=== PATIENT | female | born 1995 | race Caucasian/White ===

== ENCOUNTER → 2017-04-14 | Outpatient (CLI) | payer BC | LOC: LAB 18:32 | PROVIDERS: ATTEND Pediatrics | DX: J02.9 Acute pharyngitis, unspecified (principal) | CPT/HCPCS: 87070 ==

== ENCOUNTER 2019-06-15 22:58 | Outpatient (CLI) | payer BC, MEDICAID ==
[2019-06-15 23:21] LABS: APPEARANCE,URINE CLEAR; BILIRUBIN,URINE NEGATIVE (NEGATIVE); COLOR,URINE STRAW; GLUCOSE, URINE NEGATIVE (NEGATIVE); KETONES,URINE NEGATIVE (NEGATIVE); LEUKOCYTE ESTERASE,URINE NEGATIVE (NEGATIVE); NITRITE,URINE NEGATIVE (NEGATIVE); PROTEIN,URINE NEGATIVE (NEGATIVE); URINE SPECIFIC GRAVITY 1.002; UROBILINOGEN,URINE NEGATIVE mg/dL (<2.0)
[2019-06-15 23:42] LABS: URINE AMPHETAMINES SCREEN NEGATIVE; URINE BARBITURATES SCREEN NEGATIVE; URINE BENZODIAZEPINES SCREEN NEGATIVE; URINE COCAINE SCREEN NEGATIVE; URINE MARIJUANA (THC) SCREEN NEGATIVE; URINE METHADONE SCREEN NEGATIVE; URINE PHENCYCLIDINE SCREEN NEGATIVE
--- NOTE | 2019-06-15 23:45 | Non Stress Test Report ---
Non Stress Test Datetime Report Generated by CPN: 06/15/2019 23:45 DEMOGRAPHIC EGA NST: 39.4 INDICATION Indication for Study (NST) Other: gestational age greater than 32 weeks VITAL SIGNS Temperature - NST: 98.5 Pulse - NST: 78 RESP - NST: 16 NBPSYS NST: 108 NBPDIA NST: 63 MONITORING Monitor Explained: Monitor Explained; Test Explained; Patient Verbalized Understanding Time on Monitor: 06/15/2019 23:14 Time off Monitor: 06/15/2019 23:37 NST Duration: 23 NST INTERVENTIONS NST Interventions: PO Hydration Physician Notified NST: Dr. Younger BABY A: [id number] BABY A Movement : Present Contraction Frequency : x2 FHR Baseline : 135 Accelerations : 15X15 Decelerations : None Variability : Moderate 6-25bpm NST Review: Meets Criteria for Reactive NST NST Review and Verified By : NATACHA Tam NST Results: Reactive NST REPORT Report Trigger: Send Report
== END 2019-06-15 23:44 | disposition home or self-care (01) ==
LOC: LC 22:58
PROVIDERS: ATTEND Obstetrics & Gynecology
PROC: 4A1HXCZ Monitoring of Products of Conception, Cardiac Rate, External Approach (ICD-10-PCS; principal; 2019-06-15)
DX: Z34.93 Encounter for supervision of normal pregnancy, unspecified, third trimester (principal); Z3A.39 39 weeks gestation of pregnancy
CPT/HCPCS: 59025; 80307; 81005

== ENCOUNTER 2019-06-16 03:50 | Inpatient (IN) | payer BC, MEDICAID ==
[2019-06-16] MEDS ORDERED: RINGERS SOLUTION,LACTATED 1,000 ML IV ONE (04:26)
[2019-06-16] MEDS ORDERED: RINGERS SOLUTION,LACTATED 1,000 ML IV PRN (04:26)
--- NOTE | 2019-06-16 05:08 | Admission Physical ---
Datetime Report Generated by CPN: 06/16/2019 05:07 CURRENT ADMISSION Chief Complaint: Suspected Ruptured Membranes Indication for Induction: Not Applicable Admit Impression : Term, Intrauterine ; No Active Labor; Ruptured Membranes Admit Plan: Admit to Unit; Initiate Labor Augmentation Protocol ALLERGIES Medication Allergies: Yes Medication Allergies: Penicillins (06/16/2019) Latex: No Latex Allergies Food Allergies: none Environmental Allergies: none OBSTETRICAL HISTORY EDC: 06/18/2019 00:00 : 1 Para: 0 Gestational Diabetes: No Rh Sensitization: No Incompetent Cervix: No ALICE: No Infertility: No ART Treatment: No Uterine Anomaly: No IUGR: No Hx Previous C/S: No Macrosomia: No Hx Loss/Stillborn: No PIH: No Hx : No Placenta Previa/Abruption: No Depression/PP Depression: No PTL/PROM: No Post Hemorrhage: No Current Procedures: Ultrasound Obstetrical History Comments: G1 - current SEE RECORDS Alcohol: No Marijuana : No Cocaine: No Other Illicit Drugs: No Cigarettes: Never Smoker. [id number] MEDICAL HISTORY Diabetes: No Blood Transfusion: No Pulmonary Disease (Asthma, TB): No Breast Disease: No Hypertension: No Food Tray Assembler Surgery: No Heart Disease: No Hosp/Surgery: No Autoimmune Disorder: No Anesthetic Complications: No Kidney Disease: No Abnormal Pap Smear: No Neuro/Epilepsy: No Psychiatric Disorders: No Other Medical Diseases: No Hepatitis/Liver Disease: No Significant Family History: No Varicosities/Phlebitis: No Trauma/Violence : No Thyroid Dysfunction: No INFECTIOUS HISTORY Gonorrhea: No Genital Herpes: No Chlamydia: No Tuberculosis: No Syphilis: No Hepatitis: No HIV/AIDS Exposure: No Rash or Viral Illness: No HPV: No PHYSICAL EXAM General: Normal HEENT: Normal Neurologic: Normal Thyroid: Normal Heart: Normal Lungs: Normal Breast: Normal Back: Normal Abdomen: Normal Genitourinary Exam: Normal Extremities: Normal DTRs: Normal Pelvic Type: Adequate Vital Signs: Reviewed; Within Normal Limits VAGINAL EXAM Dilatation: 1 Effacement: 80 Station: -2 Contraction Comments: q 4 min MEMBRANES Membranes: Ruptured Amniotic Fluid Color: Clear FETUS A EGA: 39.5 Monitoring: External US FHR- Baseline: 130s Variability: Moderate 6-25bpm Accelerations: 15X15 Decelerations: None FHR Category: Category I Admit Comment: presents to L_D c/o leakage of fluid, which started at 0030. Clear fluid noted. GBS NEG. She reports good movement. She has no co-morbidities. PLANS FOR LABOR AND DELIVERY Labor and Delivery: None Pain Management: Epidural Feeding Preference: Breast Benefit of Breast Feed Discussed: Yes Circumcision: Yes INFORMED CONSENT Signature: with User ID: [email or web address]
[2019-06-16 05:25] LABS: ABSOLUTE EOSINOPHILS # (AUTO) 0.1 10^3/uL (0.0-0.6); ABSOLUTE LYMPHOCYTES (AUTO) 1.7 10^3/uL (0.5-4.7); ABSOLUTE MONOCYTES (AUTO) 0.8 10^3/uL (0.1-1.4); ABSOLUTE NEUT (AUTO) 9.1 10^3/uL (1.7-8.2); BASOPHILS % (AUTO) 0.3 % (0-2); EOSINOPHILS % (AUTO) 0.5 % (0-6); HEMATOCRIT 28.7 % (36.0-47.0); HEMOGLOBIN 9.3 g/dL (12.0-15.5); LYMPHOCYTES % (AUTO) 14.8 % (13-45); MEAN CORPUSCULAR HEMOGLOBIN 25.8 pg (27.0-33.4); MEAN CORPUSCULAR HGB CONC 32.4 g/dL (32.0-36.0); MEAN CORPUSCULAR VOLUME 80 fl (80-97); MONOCYTES % (AUTO) 6.9 % (3-13); PLATELET COUNT 283 10^3/uL (150-450); RED BLOOD COUNT 3.61 10^6/uL (3.72-5.28); RED CELL DISTRIBUTION WIDTH 14.6 % (11.5-14.0); SEGMENTED NEUTROPHILS % (AUTO) 77.5 % (42-78); TOTAL CELLS COUNTED % (AUTO) 100 %; WHITE BLOOD COUNT 11.8 10^3/uL (4.0-10.5)
[2019-06-16] MEDS ORDERED: MISOPROSTOL 0.2 MG TABLET ONE (06:38)
[2019-06-16] MEDS ORDERED: LIDOCAINE 1% INJ-PF (10 MG/ML) 30 ML SDV ONE (06:38)
[2019-06-16] MEDS ORDERED: OXYTOCIN/NORMAL SALINE 20 UNIT/1,000 ML RTUINJ ONE (06:38)
[2019-06-16] MEDS ORDERED: OXYTOCIN 10 UNIT/ML VIAL ONE (06:38)
[2019-06-16] MEDS ORDERED: OXYTOCIN/NORMAL SALINE 20 UNIT/1,000 ML RTUINJ IV PRN ×2 (07:58→18:11)
[2019-06-16] MEDS ORDERED: BUPIVACAINE HCL 0.25 % INJ/PF (2.5 MG/1 ML) 30 ML VIAL ONE (09:51)
[2019-06-16] MEDS ORDERED: FENTANYL/BUPIVACAINE/NS/PF 300 MCG/150 ML RTUINJ EPI ONE (09:51)
[2019-06-16] MEDS ORDERED: EPHEDRINE SULFATE INJ 50 MG/1 ML AMPULE ONE (09:51)
--- NOTE | 2019-06-16 15:26 | Delivery Summary ---
Del Sum A-C Datetime Report Generated by CPN: 06/16/2019 15:26 DELIVERY PERSONNEL DELIVERY PERSONNEL: [id number] Delivery Doctor:: Maria Del Rosario Allan CNM Labor and Delivery Nurse:: Paula Ballesteros RNwellness ambassador Nurse:: LINDSAY [employer] Agent/CONTINUOUS IMPROVEMENT MANAGER: Norma Villafana CNA II MATERNAL INFORMATION Delivery Anesthesia: Epidural Medications After Delivery: Pitocin Bolus-Please Comment; Pitocin Drip 20 Units/1000ml NSS Meds After Delivery Comment: 20 Units Pitocin/1000 ml NS Delivery QBL: 285 Maternal Complications: None Provider Comments: SVDVM JOE with Compound Lt hand over intact perineum. Infant vigorous, to mother abd. Cord clamped and cut after 2 min. Placenta spont via cao, minimal bleeding. Pt doing well, labial lacs repaired. FF@ U-3. Mother and stable. LABOR SUMMARY EDC: 06/18/2019 00:00 No. Babies in Womb: 1 Attempted: No Labor Anesthesia: Epidural LABOR INFORMATION Reason for Induction: Premature Rupture of Membranes Onset of Labor: 06/16/2019 09:30 Complete Dilatation: 06/16/2019 13:57 Oxytocin: Induction Group B Beta Strep: Negative Antibiotics # of Doses: n/a Antibiotics Time of Last Dose: n/a Name of Antibiotic Given: n/a Steroids Given: None Reason Steroids Not Administered: Not Applicable MEMBRANES Membranes Rupture Method: Spontaneous Rupture of Membranes: 06/16/2019 00:30 Length of Rupture (hr): 13.68 Amniotic Fluid Color: Clear Amniotic Fluid Amount: Small Amniotic Fluid Odor: Normal STAGES OF LABOR Stage 1 hr: 4 Stage 1 min: 27 Stage 2 hr: 0 Stage 2 min: 14 Stage 3 hr: 0 Stage 3 min: 6 Total Time in Labor hr: 4 Total Time in Labor min: 47 VAGINAL DELIVERY Episiotomy: None Laceration #1: Vaginal Laceration Extension #1: First Degree Other Laceration: Rt and Lt labial Laceration Repair: Yes Laceration Repair Note: chromic suture used for repair under epidural anesthesia Sponge Count Correct: N/A Sharps Count Correct: Yes BABY A INFORMATION Infant Delivery Date/Time: 06/16/2019 14:11 Method of Delivery: Vaginal Born in Route : No : N/A Forceps: N/A Vacuum Extraction: N/A Shoulder Dystocia : No PRESENTATION/POSITION BABY A Presentation: Cephalic Cephalic Presentation: Vertex Vertex Position: Left Occipital Anterior Breech Presentation: N/A PLACENTA INFORMATION BABY A Placenta Delivery Time : 06/16/2019 14:17 Placenta Method of Delivery: Spontaneous Placenta Status: Retained SCORES BABY A Heart Rate 1 min: >100 bpm Resp Effort 1 min: Good Cry Reflex Irritability 1 min: Cough or Sneeze or Pulls Away Muscle Tone 1 min: Active Motion Color 1 min: Body [place], Extremities Blue Resuscitation Effort 1 min: Tactile Stimulation SCORE 1 MIN: 9 Heart Rate 5 min: >100 bpm Resp Effort 5 min: Good Cry Reflex Irritability 5 min: Cough or Sneeze or Pulls Away Muscle Tone 5 min: Active Motion Color 5 min: Body [place], Extremities Blue Resuscitation Effort 5 min: Tactile Stimulation SCORE 5 MIN: 9 INFANT INFORMATION BABY A Gestational Age at Delivery: 39.5 Gestational Status: Full Term- 39- 40.6 Weeks Outcome : Liveborn Infant Condition : Stable Infant Sex: Male IDENTIFICATION BABY A Infant Verification Date/Time: 06/16/2019 14:45 ID Band Number: [id number] Mother's Name Verified: Yes RN Verifying : Nichole Ballesteros, RN/S. [place], RNC WEIGHT/LENGTH BABY A Birthweight (gm): 3192 Weight (lb): 7 Weight (oz): 1 Infant Length (in): 19.50 Infant Length (cm): 49.53 CORD INFORMATION BABY A No. Cord Vessels: 3 Nuchal Cord : N/A Cord Blood Taken: Yes-For Eval (Mom's Blood Type - or O+) Infant Suction: None ASSESSMENT BABY A Complications: None Physical Findings at Delivery: Within Normal Limits Respirations: Appears Normal Skin to Skin: Yes Skin to Skin Time (min): 60 Manager French/ALS Called : No Infant Care By: Stefan Weldon RN Transferred To: Remains with Mother BABY B INFORMATION : N/A SIGNATURES Assignment: Tian Franks MD Signature: with User ID: Sals : with User ID: [email or web address] : I was personally available for consultation and serving as supervising physician for the MLP.
[2019-06-16] MEDS ORDERED: DIPH/PERTUSS(ACELL)/TETANUS VAC/PF 0.5 ML SYR (>=10YO) IM PRN (18:11)
[2019-06-16] MEDS ORDERED: DIBUCAINE 1% OINTMENT 28 GM TP PRN (18:11)
[2019-06-16] MEDS ORDERED: MEASLES,MUMPS&RUBELLA VACC/PF 0.5 ML VIAL SUBCUT PRN (18:11)
[2019-06-16] MEDS ORDERED: BENZOCAINE/MENTHOL AEROSOL SPRAY 56 ML TOP PRN (18:11)
[2019-06-16] MEDS ORDERED: ZOLPIDEM TARTRATE 5 MG TABLET PO PRN (18:11)
[2019-06-16] MEDS: IBUPROFEN 800 MG TABLET PO SCH (21:16)
[2019-06-16] MEDS: DOCUSATE SODIUM 100 MG CAPSULE PO SCH (21:16)
[2019-06-16] MEDS: FERROUS SULFATE 325 MG TABLET PO SCH (21:16)
[2019-06-17] MEDS: IBUPROFEN 800 MG TABLET PO SCH ×3 (06:09→22:43)
[2019-06-17 09:34] LABS: HEMATOCRIT 23.9 % (36.0-47.0); MEAN CORPUSCULAR HEMOGLOBIN 25.6 pg (27.0-33.4); MEAN CORPUSCULAR HGB CONC 32.4 g/dL (32.0-36.0); MEAN CORPUSCULAR VOLUME 79 fl (80-97); PLATELET COUNT 228 10^3/uL (150-450); RED BLOOD COUNT 3.02 10^6/uL (3.72-5.28); RED CELL DISTRIBUTION WIDTH 15.3 % (11.5-14.0); WHITE BLOOD COUNT 11.9 10^3/uL (4.0-10.5)
[2019-06-17 09:38] LABS: HEMOGLOBIN 7.7 g/dL (12.0-15.5)
[2019-06-17] MEDS: FERROUS SULFATE 325 MG TABLET PO SCH ×2 (11:34→17:42)
[2019-06-17] MEDS: DOCUSATE SODIUM 100 MG CAPSULE PO SCH ×2 (11:34→17:42)
[2019-06-17] MEDS: SENNOSIDES/DOCUSATE 8.6-50 MG 1 EACH TABLET PO SCH (11:34)
[2019-06-17] MEDS: PRENATAL VITAMIN W DHA CAPSULE PO SCH (11:34)
--- NOTE | 2019-06-17 12:07 | PDOC PROGRESS REPORT ---
Subjective-OB Progress Note for:: 06/17/19 Subjective: Doing well, no c/o, breast feeding. scant bleeding Physical Exam (OB) Vital Signs: Temp Pulse Resp BP Pulse Ox 97.4 F 82 16 119/72 100 06/17/19 07:39 06/17/19 07:39 06/17/19 07:39 06/17/19 07:39 06/17/19 07:39 Intake & Output 06/16/19 06/17/19 06/18/19 06:59 06:59 06:59 Intake Total 500 300 Balance 500 300 Weight 65.8 kg - PIH/Pre-Eclampsia Clonus: Negative Headache: Absent Epigastric Pain: No Visual Changes: No - Lochia Lochia Amount: Small 10-25 ml Lochia Color: Rubra/Red - Abdomen Description: Soft, Round Hernia Present: No Fundal Description: Firm, Midline Fundal Height: u/u - u/2 Objective-Diagnostic Laboratory: 06/17/19 09:24 06/17/19 09:24 WBC 11.9 H RBC 3.02 L Hgb 7.7 L Hct 23.9 L MCV 79 L MCH 25.6 L MCHC 32.4 RDW 15.3 H Plt Count 228 Assessment and Plan(PN) - Assessment and Plan (1) Vaginal delivery Is this a current diagnosis for this admission?: Yes (2) Term Is this a current diagnosis for this admission?: Yes (3) Spontaneous rupture of amniotic membranes Is this a current diagnosis for this admission?: Yes - Time Spent with Patient Time with patient: Less than 15 minutes Medications reviewed and adjusted accordingly: Yes - Disposition Anticipated Discharge: Home Within: within 24 hours
[2019-06-18] MEDS: IBUPROFEN 800 MG TABLET PO SCH ×2 (06:49→13:12)
[2019-06-18 08:26] VITALS: BP 111/82
--- NOTE | 2019-06-18 10:14 | PDOC PROGRESS REPORT ---
Subjective-OB Progress Note for:: 06/18/19 Subjective: Doing well, no c/o. , voiding, scant lochia Physical Exam (OB) Vital Signs: Temp Pulse Resp BP Pulse Ox 98.1 F 76 16 111/82 100 06/18/19 07:54 06/18/19 07:54 06/18/19 07:54 06/18/19 07:54 06/18/19 07:54 Intake & Output 06/17/19 06/18/19 06/19/19 06:59 06:59 06:59 Intake Total 083 649 0529 Balance 089 916 6959 - PIH/Pre-Eclampsia Clonus: Negative Headache: Absent Epigastric Pain: No Visual Changes: No - Lochia Lochia Amount: Small 10-25 ml Lochia Color: Rubra/Red - Abdomen Description: Soft, Round Hernia Present: No Fundal Description: Firm, Midline Fundal Height: u/u - u/2 Objective-Diagnostic Laboratory: 06/17/19 09:24 Assessment and Plan(PN) - Assessment and Plan (1) Vaginal delivery Is this a current diagnosis for this admission?: Yes (2) Term Is this a current diagnosis for this admission?: Yes (3) Spontaneous rupture of amniotic membranes Is this a current diagnosis for this admission?: Yes - Time Spent with Patient Time with patient: Less than 15 minutes Medications reviewed and adjusted accordingly: Yes - Disposition Anticipated Discharge: Home Within: within 24 hours
--- NOTE | 2019-06-18 10:19 | PDOC DISCHARGE SUMMARY ---
Impression - Admit/DC Date/PCP Admission Date/Primary Care Provider: 06/16/19 04:28 SHIRA BANKS MD Discharge Date: 06/18/19 - Discharge Diagnosis (1) Vaginal delivery Is this a current diagnosis for this admission?: Yes (2) Term Is this a current diagnosis for this admission?: Yes (3) Spontaneous rupture of amniotic membranes Is this a current diagnosis for this admission?: Yes - Additional Information Resuscitation Status: Full Code Discharge Diet: As Tolerated, Regular Discharge Activity: Activity As Tolerated, Pelvic Rest Referrals: [facility] [Provider Group] (a 4 weeks) Home Medications: Iron 1 tab .ROUTE DAILY 06/15/19 Vits96/Iron Fum/Folic [ Tablet] 1 each PO DAILY 06/15/19 HPI Gestational Age: 39.5 Reason(s) for Admission: Induction of Labor, PROM Procedures: NST, Ultrasound Intrapartum Procedure(s): Spontaneous Vaginal Delivery Complication(s): Laceration-Vaginal, Laceration-Labial Laceration-Degree: 1st - boy, 7-1, 9/9 apgars Hospital Course Hospital Course: routine Results Laboratory Results: WBC 11.9 10^3/uL (4.0-10.5) H 06/17/19 09:24 RBC 3.02 10^6/uL (3.72-5.28) L 06/17/19 09:24 Hgb 7.7 g/dL (12.0-15.5) L 06/17/19 09:24 Hct 23.9 % (36.0-47.0) L 06/17/19 09:24 MCV 79 fl (80-97) L 06/17/19 09:24 MCH 25.6 pg (27.0-33.4) L 06/17/19 09:24 MCHC 32.4 g/dL (32.0-36.0) 06/17/19 09:24 RDW 15.3 % (11.5-14.0) H 06/17/19 09:24 Plt Count 228 10^3/uL (150-450) 06/17/19 09:24 Lymph % (Auto) 14.8 % (13-45) 06/16/19 04:56 [place] % (Auto) 6.9 % (3-13) 06/16/19 04:56 Eos % (Auto) 0.5 % (0-6) 06/16/19 04:56 Baso % (Auto) 0.3 % (0-2) 06/16/19 04:56 Absolute Neuts (auto) 9.1 10^3/uL (1.7-8.2) H 06/16/19 04:56 Absolute Lymphs (auto) 1.7 10^3/uL (0.5-4.7) 06/16/19 04:56 Absolute Monos (auto) 0.8 10^3/uL (0.1-1.4) 06/16/19 04:56 Absolute Eos (auto) 0.1 10^3/uL (0.0-0.6) 06/16/19 04:56 Absolute Basos (auto) 0.0 10^3/uL (0.0-0.2) 06/16/19 04:56 Seg Neutrophils % 77.5 % (42-78) 06/16/19 04:56 Membranes Rupture POSITIVE (NEGATIVE) H 06/16/19 04:10 RPR NONREACTIVE (NONREACTIVE) 06/16/19 04:56 Blood Type O POSITIVE 06/16/19 04:56 Antibody Screen NEGATIVE 06/16/19 04:56 Plan Health Concerns: normal delivery care Plan of Treatment: take PNV's, reviewed S&S to report Goals: no complications Time Spent: Less than 30 Minutes
[2019-06-18] MEDS: SENNOSIDES/DOCUSATE 8.6-50 MG 1 EACH TABLET PO SCH (10:32)
[2019-06-18] MEDS: PRENATAL VITAMIN W DHA CAPSULE PO SCH (10:32)
[2019-06-18] MEDS: FERROUS SULFATE 325 MG TABLET PO SCH (10:32)
[2019-06-18] MEDS: DOCUSATE SODIUM 100 MG CAPSULE PO SCH (10:32)
== END 2019-06-18 13:22 | disposition home or self-care (01) | DRG 807 ==
LOC: LC 03:50 → LR 04:28 → 2S 16:53
PROVIDERS: ADMIT Obstetrics & Gynecology; ATTEND Obstetrics & Gynecology
PROC: 10E0XZZ Delivery of Products of Conception, External Approach (ICD-10-PCS; principal; 2019-06-16)
PROC: 0HQ9XZZ Repair Perineum Skin, External Approach (ICD-10-PCS; 2019-06-16)
DX: O32.6XX0 Maternal care for compound presentation, not applicable or unspecified (principal); Z37.0 Single live birth; Z3A.39 39 weeks gestation of pregnancy; O70.0 First degree perineal laceration during delivery; Z88.0 Allergy status to penicillin
CPT/HCPCS: 36415; 84112; 85025; 85027; 86592; 86850; 86900; 86901; J2590; J3010; J3490